=== PATIENT | female | born 1985 | race Caucasian/White ===

== ENCOUNTER → 2018-06-11 | Outpatient (CLI) | payer OTHER ==
--- NOTE | 2018-06-11 16:58 | CPEKG ---
Test Reason : OPEN Blood Pressure : / mmHG Vent. Rate : 093 BPM Atrial Rate : 192 BPM P-R Int : 144 ms QRS Dur : 104 ms QT Int : 376 ms P-R-T Axes : 074 053 015 degrees QTc Int : 468 ms SINUS RHYTHM LEFT ATRIAL ABNORMALITY Confirmed by Dioni Roberts [id number] on 06/11/2018 4:57:38 PM Referred By: Confirmed By:Dioni Roberts
== END ==
LOC: FCP 16:02
PROVIDERS: ATTEND Family Medicine
DX: G89.21 Chronic pain due to trauma (principal)